=== PATIENT | male | born 2000 | race Caucasian/White ===

== ENCOUNTER 2022-04-22 12:55 | Emergency (ER) | payer SELFPAY ==
[2022-04-22 12:57] VITALS: BP 115/60; PULSE 68; RESP 20; TEMP 36.2; BMI 22.3
--- NOTE | 2022-04-22 13:44 | EX.ED.DYSGE1 ---
HPI History of Present Illness Chief Complaint: Complaint Informant: patient Onset/Context/Timing Onset: Weeks (1-1.5) Timing: Intermittent Quality: gross hematuria Current Severity: Moderate Maximum Severity: Moderate Worsened by: nothing Relieved by: nothing Associated Symptoms Associated Symptoms: urinary freq & urgency Narrative Narrative: Patient presenting with hematuria and urinary urgency, occasional left low back/flank pain that is not presently there, and occasional epigastric pain that is not presently there. He states when he was a child living in [place] and [place] he had some type of disorder where he gets masses everywhere and is concerned he has another mass. He cannot tell me anything else about this disorder except for the fact that he had his gallbladder taken out because one of the masses was in there. He cannot remember any of the hospitals that he went to in those other states where he had any of these procedures or records. He denies any fevers or chills, nausea, vomiting, chest symptoms. PFSH PFSH Medical History Liver mass Lung mass Smoker Home Medications sulfamethoxazole 800 mg-trimethoprim 160 mg tablet 1 tab PO BID #10 TABLETS 04/22/22 [Rx Last Taken Unknown] Allergy/AdvReac Type Severity Reaction Status Date / Time No Known Allergies Allergy Verified 04/22/22 13:19 Surgical History (Updated 04/22/22 @ 13:[address] Christiano Plaza MD) History of cholecystectomy History of tonsillectomy and adenoidectomy Social History Smoking Status: Current every day smoker tobacco type: e-cigarettes ROS ROS ED Constitutional Constitutional ED: Denies chills or fever(s) Eyes Eyes: Denies change in vision or diplopia ENT ENT ED: Denies rhinorrhea or sore throat Cardiovascular Cardiovascular: Denies chest pain or palpitations Respiratory/Chest Respiratory/Chest: Denies cough or dyspnea Gastrointestinal Gastrointestinal: Reports abdominal pain; Denies diarrhea, nausea or vomiting Genitourinary Genitourinary ED: Reports hematuria, urinary frequency and urinary urgency; Denies dysuria Musculoskeletal Musculoskeletal: Reports as per HPI and back pain; Denies neck pain Integumentary Denies abscess or rash Neurologic Neurologic: Denies headache(s), paresthesias or weakness Psychiatric Psychiatric: Denies anxiety or suicidal thoughts EXAM Physical Exam Const Vital Signs: 04/22/22 12:57 Temperature 97.1 F L Temperature Source Temporal Pulse Rate 68 Respiratory Rate 20 H Blood Pressure 115/60 Blood Pressure Mean 78 Positive well nourished and well developed General Appearance ED: well developed and NAD HEENT Reports moist mucous membranes normocephalic and atraumatic Eyes PERRL and EOMs intact bilaterally Neck full ROM and supple Resp normal respiratory effort and clear to auscultation bilaterally Cardio regular rate, regular rhythm and no murmurs GI non-tender and non-distended Auscultation: normoactive bowel sounds Palpation: soft Back/Spine no CVA tenderness General Back: other FROM Extremity normal to inspection General Extremety ED: Negative for edema, pulses abnormal or tenderness General Extremity: Negative for edema or pulses abnormal Neuro oriented x3, CN's II-XII intact bilaterally and no sensory deficits noted Sensorium / Orientation: awake and alert Motor Exam: strength 5/5 throughout Skin no rashes or lesions noted and no wounds MDM MDM MDM Narrative Medical decision making narrative: Given patient's history, CT with IV contrast was obtained in addition to labs and a urinalysis. The results of all of this are basically that he has a urine infection, so I will treat him for hemorrhagic cystitis, he does not have symptoms of urinary retention, I sent him for a culture, he does not have a PCP locally where he is now, so I referred him to the next doctor on the unassigned list. Lab Data Attestation: I reviewed the patient's lab results. Labs: Laboratory Results - last 24 hr 04/22/22 04/22/22 04/22/22 13:52 13:52 14:01 WBC 5.7 RBC 4.98 Hgb 15.2 Hct 43.9 MCV 88.2 MCH 30.5 MCHC 34.6 RDW Std Deviation 37.7 RDW Coeff of Vikki 11.8 Plt Count 249 MPV 10.1 Immature Gran % (Auto) 0.400 Neut % (Auto) 55.2 Lymph % (Auto) 31.5 [place] % (Auto) 8.5 Eos % (Auto) 3.5 Baso % (Auto) 0.9 Absolute Neuts (auto) 3.1 Absolute Lymphs (auto) 1.79 Nucleated RBC % 0 Sodium 138 Potassium 4.4 Chloride 105 Carbon Dioxide 28.0 Anion Gap 5 BUN 16 Creatinine 1.04 Estim Creat Clear Calc 105.68 Est GFR (MDRD) Af Amer 115 Est GFR (MDRD) Non-Af 95 BUN/Creatinine Ratio 15.4 Glucose 89 Calcium 9.1 Urine Color Yellow Urine Clarity Cloudy Urine pH 6.0 Ur Specific [place] 1.015 Urine Protein 15 H Urine Glucose (UA) Normal Urine Ketones Negative Urine Occult Blood 25 H Urine Nitrite Negative Urine Bilirubin Negative Urine Urobilinogen Normal Ur Leukocyte Esterase 500 H Urine RBC 0-5 SEEN Urine WBC 10-25 SEEN Ur Squamous Epith Cells 0-5 SEEN Urine Bacteria 1+ Urine Mucus 1+ Radiography Diagnostic Testing: Clinical Impression(s) from Imaging Studies Abdomen/Pelvis CT 04/22/22 14:28 IMPRESSION: Status post cholecystectomy. No acute abnormality is seen. Electronically Signed: Walter Rosas MD at 14:55 EDT Reading Location ID and State: [facility] / [place] , Service support , Discharge Plan Triage Chief Complaint: Complaint ED Provider: Christiano Plaza Dx/Rx/DC Orders Clinical Impression: Acute hemorrhagic cystitis Instructions: ED Hematuria, ED Bladder Infection, Male (Adult) Prescriptions: New sulfamethoxazole-trimethoprim [sulfamethoxazole-trimethoprim] 1 TABLET tablet 1 tab PO BID Qty: 10 0RF Discontinued Cipro Primary Care Provider: Care Physician,No Primary Referrals: Alesia Mcfarlane MD [STAFF PHYSICIAN] - 3-5 Days (for reevaluation and culture results) Care Physician,No Primary [Primary Care Provider] - Disposition Disposition: Home, Self Care
[2022-04-22 13:58] LABS: Absolute Lymphocyte Count 1.79 X10^3/uL (0.83-4.51); Absolute Neutrophil Count 3.1 X10^3/uL (2.0-7.7); Basophil# 0.05 X10^3/uL; Basophil% 0.9 % (0-1); Eosinophils% 3.5 % (0-5); Hematocrit 43.9 % (40-54); Hemoglobin 15.2 g/dL (13.0-16.5); Lymphocyte # 1.79 X10^3/ul (0.83-4.51); Lymphocyte % 31.5 % (19-41); Mean Corp Hgb Conc 34.6 g/dL (32-36); Mean Corpuscular Hgb 30.5 pg (27.0-32.0); Mean Corpuscular Volume 88.2 fL (80-94); Mean Platelet Vol. 10.1 fl (6.2-12.0); Monocyte# 0.48 X10^3/uL; Monocyte% 8.5 % (0-10); NRBC Flagged by Analyzer 0 % (0-5); Neutrophil # 3.14 X10^3/uL (2.7-7.7); Neutrophil % 55.2 % (47-70); Platelet Count 249 K/mm3 (150-450); RBC Distribution Width CV 11.8 % (11.6-14.6); RBC Distribution Width SD 37.7 fl (35.1-43.9); Red Blood Count 4.98 M/mm3 (4.6-6.2); White Blood Count 5.7 K/mm3 (4.4-11.0)
[2022-04-22] MEDS: 0.9% Normal Saline 1,000 ML 999 ML IV (13:58)
[2022-04-22 14:10] LABS: Anion Gap 5 (5-15); BUN 16 mg/dL (7-18); BUN/Creat Ratio 15.4 RATIO (10-20); Calcium,Total 9.1 mg/dL (8.5-10.1); Chloride 105 mmol/L (98-107); Creatinine, Serum 1.04 mg/dL (0.70-1.30); EST Glomerular Filtration Rate 95 mL/min (>60); Est Glom Filt Rate - Afr Amer 115 mL/min (>60); Estimated Creatinine Clearance 105.68 ml/min; Glucose 89 mg/dL (74-106); Potassium 4.4 mmol/L (3.5-5.1); Sodium Level 138 mmol/L (136-145)
[2022-04-22 14:11] LABS: Color, Urine Yellow (Yellow); Glucose, Dipstick Normal (Normal); Ketone-Dipstick Negative (Negative); Leukocyte Esterase-Dipstick 500 /ul (Negative); Nitrite-Dipstick Negative (Negative); Occult Blood-Urine 25 /ul (Negative); Protein-Dipstick 15 mg/dl (Negative); Specific Gravity, Urine 1.015 (1.002-1.030); Urine Bilirubin Dipstick Negative (Negative); Urine Clarity Cloudy (Clear); Urine Urobilinogen Normal (Normal)
[2022-04-22 14:18] LABS: Red Blood Cells-Urine 0-5 SEEN /hpf (0-5); Squamous Epithelial Cells - UA 0-5 SEEN /hpf (0-5); White Blood Cells 10-25 SEEN /hpf (0-5)
[2022-04-22 14:19] LABS: Bacteria 1+ /hpf (None Seen); Mucous, Urine 1+ /hpf (<or=2+)
--- NOTE | 2022-04-22 14:28 | CT_ITS ---
STUDY: CT ABDOMEN AND PELVIS WITH CONTRAST REASON FOR EXAM: Male, 21 years old. Hematuria, hx mass RADIATION DOSAGE (If Supplied By Facility): CTDIvol = ( 11.72 ) mGy, DLP = ( 360.07 ) mGycm TECHNIQUE: Transaxial images were obtained from the dome of the diaphragm to the symphysis pubis without oral contrast. IV 100mL Isovue-300 was administered. Sagittal and coronal images were reconstructed. Individualized dose optimization techniques were used for this CT. COMPARISON: None. FINDINGS: The visualized lung bases are unremarkable. The visualized portions of the heart are within normal limits. Normal liver. There are surgical clips in the gallbladder fossa consistent with a prior cholecystectomy. Normal spleen. Normal pancreas. Normal bilateral adrenal glands. Normal right kidney. Normal left kidney. There is a small hiatal hernia. Normal small intestine. Moderate amount of fecal material is seen in the colon. The appendix is visualized and appears normal. Normal abdominal aorta. Normal inferior vena cava. Normal retroperitoneum. Normal urinary bladder. Normal abdominal wall. 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 CT/Abdomen/Pelvis WITH Contrast IMPRESSION: Status post cholecystectomy. No acute abnormality is seen. Electronically Signed: Walter Rosas MD at 14:55 EDT ,
--- NOTE | 2022-04-22 14:30 | CM.ED ---
Social Work Consult: No PCP and Self Pay Referral source: Self referral due to above. Met with patient in room. Introduced self and school social worker role. Patient agreeable to speak with this school social worker. This school social worker broached topic of self pay/no PCP status for patient. Patient confirms to have no PCP and to be self-pay as patient employer does not provide insurance. Patient reports to not qualify for Medicaid nor does patient meet criteria for patient assistance program. Patient reports plan to call billing department when patient received bill to see if patient can be put on a payment plan. Patient denies concerns on returning to the community. This school social worker provided patient with information on [facility]. PLAN: Discharge to the community. Calvin MEYERS, UBALDOS
[2022-04-22] MEDS: Smz/Tmp Ds Tablet 1 TABLET PO (15:57)
[2022-04-22 15:59] VITALS: BP 121/65; PULSE 69; RESP 15; O2SAT 99
== END 2022-04-22 15:59 | disposition home or self-care (01) ==
PROVIDERS: Emergency Medicine; Emergency Provider Emergency Medicine; Visit Provider Emergency Medicine
DX: N30.01 Acute cystitis with hematuria (principal); F17.290 Nicotine dependence, other tobacco product, uncomplicated
CPT/HCPCS: 74177; 80048; 81001; 85025; 87086; 99283; J7030; Q9967; A4216